=== PATIENT | male | born 1985 | race Caucasian/White ===

== ENCOUNTER 2020-08-26 16:05 | Emergency (ER) | payer SELFPAY ==
[~2020-08-26] VITALS: Ht 177.8 cm; Wt 93.0 kg
[2020-08-26 16:15] VITALS: BP_SYST 102
[2020-08-26 16:38] VITALS: BP_SYST 102
== END 2020-08-26 16:38 ==
LOC: SED 16:05
DX: Z02.89 Encounter for other administrative examinations (principal); V49.49XA Driver injured in collision with other motor vehicles in traffic accident, initial encounter; Y93.89 Activity, other specified; Y92.89 Other specified places as the place of occurrence of the external cause; Y99.8 Other external cause status
CPT/HCPCS: 99283